=== PATIENT | male | born 1950 | race Caucasian/White ===

== ENCOUNTER 2020-11-02 14:30 | Inpatient (IN) | payer OTHER ==
[2020-11-02] VITALS (9 sets, daily range): BP systolic 82–102; BP diastolic 52–59
[~2020-11-02] VITALS: Ht 172.7 cm; Wt 64.0 kg
[2020-11-02 15:11] LABS: CALCIUM 8.3 mg/dL (8.5-10.1); CREATININE 2.2 mg/dL (0.7-1.3); HEMATOCRIT 32.6 % (42.0-52.0); HEMOGLOBIN 9.4 gm/dL (14.0-18.0); MCH 23.3 pg (26.0-34.0); MCHC 28.9 g/dL (28.0-37.0); MCV 80.7 fL (80.0-100.0); PLATELET COUNT 413 thou/uL (150-400); POTASSIUM 4.6 mmol/L (3.5-5.1); RBC 4.03 mil/uL (4.50-6.00); RDW 19.2 % (10.5-14.5)
[2020-11-02 15:14] LABS: WBC 62.7 thou/uL (4.0-11.0)
[2020-11-02 15:21] LABS: ALBUMIN 2.5 g/dL (3.4-5.0); TOTAL PROTEIN 5.7 g/dL (6.4-8.2); TROPONIN-I 0.08 ng/mL (<0.06)
[2020-11-02 15:41] LABS: URINE BILIRUBIN NEGATIVE (Negative); URINE BLOOD 3+ (Negative); URINE CLARITY CLOUDY; URINE COLOR RED; URINE GLUCOSE-RANDOM* NEGATIVE (Negative); URINE KETONES NEGATIVE (Negative); URINE LEUKOCYTES-REFLEX NEGATIVE (Negative); URINE NITRITE-REFLEX NEGATIVE (Negative); URINE PROTEIN (DIPSTICK) NEGATIVE (Negative); URINE UROBILINOGEN 0.2 E.U./dl (0.2-1.0)
[2020-11-02 15:43] LABS: BACTERIA-REFLEX None Seen /HPF (None Seen); CASTS None Seen /LPF (None Seen); CRYSTALS None Seen /LPF (None Seen); SQUAMOUS None Seen /LPF (0-3); URINE RBC >20 Many /HPF (0-2); URINE WBC-REFLEX 6-15 Few /HPF (0-5)
[2020-11-02 15:57] LABS: ABSOLUTE NEUTROPHILS 61.4 thou/uL (1.4-8.2)
[2020-11-02 16:00] LABS: HYPOCHROMASIA 3+; MICROCYTES 2+
[2020-11-02 16:35] LABS: BE(vivo) -4.7 mmol/L (-2 to +3); HCO3 27.4 mmol/L (22.0-26.0); PO2 298.6 mmHg (80.0-100.0); sO2 99.4 % (92.0-98.0)
[2020-11-02 16:36] LABS: PCO2 104.8 mmHg (35.0-45.0); pH 7.035 (7.360-7.450)
[2020-11-02 18:06] LABS: HCO3 23.6 mmol/L (22.0-26.0); PCO2 50.5 mmHg (35.0-45.0); PO2 63.9 mmHg (80.0-100.0); pH 7.288 (7.360-7.450); sO2 89.7 % (92.0-98.0)
--- NOTE | 2020-11-02 18:36 | NUR ---
OG TUBE 62 @ LIP
--- NOTE | 2020-11-02 19:32 | NUR ---
VAT RN CONSULTED FOR CVL PLACEMENT. RIGHT, 6FR IJ TL JACC PLACED STERILE FASHION, PER HOSPITAL POLICY. TRIM 25 AND 8CM EXTERNAL. PT INTUBATED AND TOLERATED WELL. CXR TO VERIFY TIP LOCATION.
--- NOTE | 2020-11-02 19:46 | NUR ---
THIS US SPOKE TO AI OF [facility] @ 194 AND REQUESTED PAPER WORK REGARDING PATIENT HISTORY AND PHYSCIAL AT FACILITY
--- NOTE | 2020-11-02 19:46 | NUR ---
RADIOLOGY REPORT IJ CVL TIP OVERLIES CAJ. RELEASED FOR USE, PER HOSPITAL PROTOCOL.
[2020-11-02 20:23] LABS: CREATININE 2.6 mg/dL (0.7-1.3); POTASSIUM 4.8 mmol/L (3.5-5.1)
[2020-11-02 20:40] LABS: APTT 30.8 Seconds (24.5-32.8); INR 1.3; PROTIME 14.5 Seconds (9.3-11.4)
[2020-11-03] VITALS (153 sets, daily range): BP systolic 68–167; BP diastolic 42–95
[2020-11-03 04:01] LABS: HCO3 13.7 mmol/L (22.0-26.0); PCO2 39.4 mmHg (35.0-45.0); PO2 143.4 mmHg (80.0-100.0); sO2 98.2 % (92.0-98.0)
[2020-11-03 04:02] LABS: pH 7.159 (7.360-7.450)
[2020-11-03 04:42] LABS: CALCIUM 6.9 mg/dL (8.5-10.1); CREATININE 2.9 mg/dL (0.7-1.3); POTASSIUM 4.5 mmol/L (3.5-5.1)
[2020-11-03 04:48] LABS: HEMOGLOBIN 7.8 gm/dL (14.0-18.0)
[2020-11-03 04:53] LABS: HEMATOCRIT 28.4 % (42.0-52.0); MCHC 27.5 g/dL (28.0-37.0); MCV 83.7 fL (80.0-100.0); RBC 3.39 mil/uL (4.50-6.00)
[2020-11-03 05:21] LABS: PLATELET COUNT 332 thou/uL (150-400)
[2020-11-03 05:22] LABS: WBC 95.2 thou/uL (4.0-11.0)
--- NOTE | 2020-11-03 06:48 | EKG ---
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 : 1950 Requested By: Aneta Dobson Order Number: [id number] MD: Arsenio Tapia Measurements Intervals [place] Rate: 118 P: 79 LA: 101 QRS: -21 QRSD: 112 T: -74 QT: 308 QTc: 432 Interpretive Statements Sinus tachycardia Atrial premature complexes RSR' in V1 or V2, probably normal variant Inferior infarct, old Lateral leads are also involved No previous ECG available for comparison Electronically Signed On 11-03-2020 6:48:21 [employer] by Arsenio Tapia [email or web address] <ELECTRONICALLY SIGNED> By: Arsenio Tapia MD, [facility] 11/03/20 0648 1446 1446 Arseino Tapia MD, FACC /EPI
[2020-11-03 09:08] LABS: CALCIUM 6.8 mg/dL (8.5-10.1)
--- NOTE | 2020-11-03 09:28 | 2DMMODE ---
[facility] [place] [address] 2 D/M-MODE ECHOCARDIOGRAM Name: MANNY ARNOLD Room #: 243-P ADM IN M.R.#: [id number] Admission: 11/02/20 Attend Phys: Jose Hoffman MD Discharge: Date of : 46 Report #: [id number] THIS REPORT FOR: cc: Maged Arceo James D. DO Lammoglia, Francisco J. MD ~ APPROVED REPORT Study performed: 11/03/2020 08:43:09 EXAM: Comprehensive 2D, Doppler, and color-flow Echocardiogram Patient Location: ICU Room #: 243 Status: routine BSA: 1.80 HR: 80 bpm BP: 151/83 mmHg Rhythm: NSR Other Information Study Quality: Good Indications COPD Murmur Covid positive 2D Dimensions RVDd: 32.50 mm IVSd: 8.85 (7-11mm) LVOT Diam: 19.66 (18-24mm) LVDd: 41.96 mm PWd: 10.35 (7-11mm) Ascending Ao: 41.12 (22-36mm) LVDs: 30.46 (25-40mm) Aortic Root: 34.14 mm IVC: 10.00 mm Volumes Left Atrial Volume (Systole) Single Plane 4CH: 50.10 mL Single Plane 2CH: 53.07 mL LA ESV Index: 32.00 mL/m2 Aortic Valve AoV Peak Joe.: 1.75 m/s AO Peak Gr.: 12.27 mmHg LVOT Max P.66 mmHg LVOT Max V: 1.47 m/s [facility] [address] [place] [address] 2 D/M-MODE ECHOCARDIOGRAM Name: MANNY ARNOLD Room #: 243-P ADM IN M.R.#: [id number] Admission: 11/02/20 Attend Phys: Jose Hoffman MD Discharge: Date of : 46 Report #: [id number] CALEB Vmax: 2.55 cm2 Mitral Valve E/A Ratio: 1.3 MV Decel. Time: 135.78 ms MV E Max Joe.: 0.78 m/s MV A Joe.: 0.58 m/s MV PHT: 39.38 ms IVRT: 73.82 ms Pulmonary Valve PV Peak Joe.: 1.02 m/s PV Peak Gr.: 4.13 mmHg Pulmonary Vein P Vein S: 0.52 m/s P Vein A: 0.27 m/s P Vein D: 0.27 m/s P Vein A Dur.: 87.7 msec P Vein S/D Ratio: 1.93 Tricuspid Valve TR Peak Joe.: 2.88 m/s TR Peak Gr.: 33.26 mmHg PA Pressure: 38.00 mmHg Left Ventricle The left ventricle is normal size. There is normal LV segmental wall motion. There is normal left ventricular wall thickness. The left ventricular systolic function is normal. The left ventricular ejection fraction is within the normal range. LVEF is 55-60%. The left ventricular diastolic function is normal. Right Ventricle The right ventricle is normal size. The right ventricular systolic function is normal. Atria The left atrium size is normal. The right atrium size is normal. Aortic Valve The aortic valve is normal in structure. The Aortic valve is sclerotic. Mild aortic regurgitation. There is no aortic valvular stenosis. Mitral Valve The mitral valve is normal in structure. Trace mitral regurgitation. No evidence of mitral valve stenosis. [facility] [address] [place] [address] 2 D/M-MODE ECHOCARDIOGRAM Name: MANNY ARNOLD Room #: 243-P ADM IN M.R.#: [id number] Admission: 11/02/20 Attend Phys: Jose Hoffman MD Discharge: Date of : 46 Report #: [id number] Tricuspid Valve The tricuspid valve is normal in structure. There is trace to mild tricuspid regurgitation. Estimated PAP 38 mmHg. There is mild pulmonary hypertension. Pulmonic Valve The pulmonary valve is normal in structure. There is no pulmonic valvular regurgitation. Great Vessels The aortic root is normal in size. IVC is normal in size and collapses >50% with inspiration. Pericardium There is no pericardial effusion. <Conclusion> The left ventricle is normal size. LVEF is 55-60%. The aortic valve is normal in structure. The Aortic valve is sclerotic. Mild aortic regurgitation. The mitral valve is normal in structure. Trace mitral regurgitation. The tricuspid valve is normal in structure. There is trace to mild tricuspid regurgitation. Estimated PAP 38 mmHg. There is mild pulmonary hypertension. The pulmonary valve is normal in structure. There is no pericardial effusion. <ELECTRONICALLY SIGNED> By: Cuba Ruth MD 11/03/20927 7 7 Cuba Ruth MD /INF
--- NOTE | 2020-11-03 09:37 | NUR ---
UPON ADMISION, PT FROM ED, PT ON LEVOPHED, EPI, VERSED GTT. STARETED VASSOPRESSIN UPON ARRIVAL TO SUPPORT BP. REPORT GIVEN PT HAD EMESSIS PRIOR TO ARRIVAL. REPLACE SMALL BORE OGT WITH LARGER BORE OGT TO LIS. CRITICAL LAB RESULT CALLED TO PROVIDERS AND ORDERS RECIVED TO ADDRESS. PT SIN TO OPEN EYES AND TRACK WHEN SEDATION LIGHTEND. SLOW PROGRESS TO REMOVE PRESSORS.
[2020-11-03 10:14] LABS: ABSOLUTE NEUTROPHILS 86.6 thou/uL (1.4-8.2); METAMYELOCYTES 5 %; MYELOCYTES 1 %
[2020-11-03 10:15] LABS: ANISOCYTOSIS 2+; HYPOCHROMASIA 1+; OVALOCYTES FEW
[2020-11-03 10:16] LABS: LARGE PLATELETS FEW
[2020-11-03 11:53] LABS: POTASSIUM 4.2 mmol/L (3.5-5.1)
[2020-11-03 11:57] LABS: % SATURATION 3 % (20-39); IRON 7 ug/dL (65-175); TIBC 227 ug/dL (250-450)
--- NOTE | 2020-11-03 12:25 | NUR ---
chart review. pt from [facility]. requiring vent. unable to visit with jossy. no contacted listed. cm sent message for liaison with [facility] to see if he is snf or LTC. will cont to following as needed for dc needs.
[2020-11-03 12:27] LABS: FOLIC ACID 6.5 ng/mL (8.6-58.9)
--- NOTE | 2020-11-03 13:00 | NUR ---
brown liquid drained out of pt's mouth. og patent with small amount green bile drainage, followed by brown drainage. titrated off epi and vaso.
--- NOTE | 2020-11-03 16:30 | NUR ---
MARGINAL URINE OUTPUT. IRRIGATED OSBORN WITH 90CC STERILE WATER. PINK URINE 90CC RETURN, NO CLOTS. LIGHT BROWN DRAINAGE PER OG TUBE.
[2020-11-03 17:20] LABS: CALCIUM 6.6 mg/dL (8.5-10.1); CREATININE 2.8 mg/dL (0.7-1.3)
[2020-11-03 21:02] LABS: ALBUMIN 1.5 g/dL (3.4-5.0); CALCIUM 6.3 mg/dL (8.5-10.1); CREATININE 3.1 mg/dL (0.7-1.3); POTASSIUM 4.1 mmol/L (3.5-5.1); TOTAL PROTEIN 4.5 g/dL (6.4-8.2)
[2020-11-03 21:10] LABS: HEMOGLOBIN 7.3 gm/dL (14.0-18.0); MCHC 30.3 g/dL (28.0-37.0)
[2020-11-03 21:10] LABS: BE(vivo) 3.4 mmol/L (-2 to +3); PCO2 36.3 mmHg (35.0-45.0); PO2 81.3 mmHg (80.0-100.0); pH 7.489 (7.360-7.450); sO2 96.8 % (92.0-98.0)
[2020-11-03 21:13] LABS: HEMATOCRIT 24.2 % (42.0-52.0); MCH 23.4 pg (26.0-34.0); MCV 77.1 fL (80.0-100.0); PLATELET COUNT 229 thou/uL (150-400); RBC 3.14 mil/uL (4.50-6.00); RDW 19.4 % (10.5-14.5)
[2020-11-03 21:15] LABS: WBC 59.2 thou/uL (4.0-11.0)
[2020-11-03 23:28] LABS: ANISOCYTOSIS 2+; HYPOCHROMASIA 1+
[2020-11-04] VITALS (68 sets, daily range): BP systolic 71–126; BP diastolic 43–84
[2020-11-04 05:15] LABS: BE(vivo) 1.8 mmol/L (-2 to +3); HCO3 25.5 mmol/L (22.0-26.0); PO2 91.5 mmHg (80.0-100.0); pH 7.468 (7.360-7.450); sO2 97.5 % (92.0-98.0)
[2020-11-04 05:56] LABS: MCH 23.3 pg (26.0-34.0)
[2020-11-04 06:02] LABS: HEMATOCRIT 23.5 % (42.0-52.0); HEMOGLOBIN 7.1 gm/dL (14.0-18.0); MCHC 30.2 g/dL (28.0-37.0); PLATELET COUNT 231 thou/uL (150-400); RBC 3.06 mil/uL (4.50-6.00); RDW 19.6 % (10.5-14.5)
[2020-11-04 06:17] LABS: ALBUMIN 1.5 g/dL (3.4-5.0); CALCIUM 6.7 mg/dL (8.5-10.1); CREATININE 3.4 mg/dL (0.7-1.3); DIRECT BILIRUBIN 0.3 mg/dL (<0.1-0.2); PHOSPHORUS 3.4 mg/dL (2.5-4.9); POTASSIUM 4.5 mmol/L (3.5-5.1); TOTAL PROTEIN 4.6 g/dL (6.4-8.2)
[2020-11-04 06:23] LABS: WBC 63.4 thou/uL (4.0-11.0)
--- NOTE | 2020-11-04 07:06 | HC ---
[facility] [place] [address] CONSULTATION Name: MANNY ARNOLD Room #: 243-P ADM IN M.R.#: [id number] Admission: 11/02/20 Attend Phys: Jose Hoffman MD Discharge: Date of : 46 Report #: [id number] THIS REPORT FOR: cc: Maged Arceo James D. DO McKittrick, Richard James MD ~ REQUESTING PHYSICIAN: Dr. Darek Murillo REASON FOR CONSULTATION: Leukocytosis. HISTORY OF PRESENT ILLNESS: The patient is a 70-year-old gentleman that we did not have much information about. From some of the outside records, it appears that he had been living independently in an apartment, had inguinal hernia surgery, I think at [facility] about 10/21. He had tested negative for COVID before that surgery. After surgery, I believe he went to rehab/nursing facility and was readmitted to [facility] about 2 days later COVID positive. It looks like about the or the , his white count was around 30,000-34,000, hemoglobin mid 10s, platelets were between 200,000 and 300,000 if I recall. We also have lab from about the , which I think is about the time he discharged from the hospital. At that time, again his white count was between 30,000 and 40,000, hemoglobin in the mid 10s by recall. Here, it seems that he developed mental status changes at the nursing facility and I believe respiratory difficulties. He was brought to the hospital. Here, he was intubated, was found to have respiratory failure and was also hypotensive, currently in the ICU on multiple pressors. Yesterday, his white count was 62,700, today it is 95,000. Hemoglobin yesterday 9.4, today 7.8; yesterday platelet count 413, today 332. MCV 83.7. Differential had 79% neutrophils, 19% bands, 2 lymphocytes. No blasts, metamyelocytes, myelocytes mentioned. Liver functions were okay. Coags were normal. Differential at outside had also showed mostly neutrophils without mention of blasts, metamyelocytes or myelocytes. The patient tested COVID positive here. PAST MEDICAL HISTORY: Not really obtainable. Per outside charts it sounds like the patient stopped smoking about 17 years ago. There was one mention about prostate cancer, but another did mention hypothyroidism, may be some COPD. We will try to review those records when they become more available. SOCIAL HISTORY: As above. Quit smoking. Lived independently in an apartment prior to this. FAMILY HISTORY: Unobtainable. MEDICATIONS: At this time in the hospital currently include vancomycin 500 ____ q. 24, heparin 5000 units b.i.d., sodium bicarbonate, midazolam, Zosyn q. 8, norepinephrine drips, levofloxacin q. 48, famotidine 10 mg b.i.d. IV, dexamethasone 10 daily. He is also on sliding scale insulin, epinephrine drip, [address] [address] CONSULTATION Name: MANNY ARNOLD Room #: 243-P ADM IN M.R.#: [id number] Admission: 11/02/20 Attend Phys: Jose Hoffman MD Discharge: Date of : 46 Report #: [id number] vasopressin drip. PHYSICAL EXAMINATION: VITAL SIGNS: Height is 5 feet 8 inches, 172.7 cm; weight 153 pounds or 69.5 kilograms. Recent blood pressure is 98/56, O2 sat 95% on a vent at 50% FiO2, pulse 95, respirations 20, afebrile here. He had earlier last measured afternoon 102.9 axillary. IMAGING: Includes chest x-ray which had some questionable infiltrates. Per Dr. Murillo, outside scans at [facility] had raised the question about a widened mediastinum. ASSESSMENT AND PLAN: 1. Leukocytosis. Given the fact that it was present at the other hospital, this may be somewhat chronic. We do not have preadmit to see if he was elevated. May be leukemoid that is quite high for that. On the other hand, we do not see any blast, increased lymphocytes, metamyelocytes or myelocytes. We will ask pathology for peripheral smear review and monitor the patient on multiple antibiotics. The patient is also on steroids which may be contributing. 2. Respiratory failure, on the ventilator with inhalation therapy. 3. Presumed sepsis with fever and multiorgan dysfunction, on multiple antibiotics. I believe Infectious Disease will be seeing the patient. 4. History of hypothyroid. Will need replacement. 5. Anemia. We will check B12, folate, iron, may be more chronic in nature. 6. Renal insufficiency with a creatinine of 2.9. We will monitor. <ELECTRONICALLY SIGNED> By: Matty Cortez MD 11/04/2006 2 Matty Cortez MD /nt
[2020-11-04 08:07] LABS: HEMATOLOGY COMMENTS Note: (()); HEMOGLOBIN 7.7 g/dL (13.0-17.7)
--- NOTE | 2020-11-04 08:32 | HC ---
[facility] [place] [address] CONSULTATION Name: CLIF ARNOLD Room #: 243-P ADM IN M.R.#: [id number] Admission: 11/02/20 Attend Phys: Jose Hoffman MD Discharge: Date of : 46 Report #: [id number] THIS REPORT FOR: cc: Maged Arceo James D. DO Barry, Joseph W. MD ~ DATE OF SERVICE: 11/03/2020 INFECTIOUS DISEASE CONSULTATION ATTENDING PHYSICIAN: Dr. Hoffman REASON FOR EVALUATION: Septic shock, gram-negative septicemia, also has COVID-19 and has multiorgan dysfunction. HISTORY OF PRESENT ILLNESS: Chart reviewed, patient examined. This is a 70-year-old gentleman, admitted and transferred from a facility. History is obtained from the chart. Apparently, he underwent bilateral inguinal hernia repair 10/21/2020 at an outside hospital, within the next 24 hours, had tested positive for COVID-19, had been recovering, on day of admission was found to have fairly abrupt onset of mental status changes, was found to be hypoxemic with saturations in the 70s. He was transferred to the Emergency Room, was found to be in renal failure with a creatinine of 2.2. Urinalysis showed 6-15 white cells. Chest x-ray, bilateral diffuse hazy interstitial lung changes. Initial CBC showed a white count of 62.7 thousand, repeat today was 95,000. Lactic acid elevated at 5.88, pH is 7.035, pCO2 of 104.8, pO2 of 298.6, on FiO2 100%, was emergently intubated. Procalcitonin was greater than 200. Troponin elevated at 1.08. Urine culture with growth of E. coli as were 2/2 blood cultures. Abdominal ultrasound showed unremarkable gallbladder. No evidence of abnormal biliary tract. ALLERGIES: None known. CURRENT MEDICATIONS: Include vancomycin, sodium bicarbonate, Zosyn, norepinephrine, epinephrine, vasopressin, levothyroxine, famotidine, dexamethasone. PAST MEDICAL HISTORY: Limited to the chart. SOCIAL HISTORY: Former smoker. FAMILY HISTORY: Noncontributory. REVIEW OF SYSTEMS: Unobtainable. [facility] [address] [place] [address] CONSULTATION Name: CLIF ARNOLD Room #: 243-P ADM IN M.R.#: [id number] Admission: 11/02/20 Attend Phys: Jose Hoffman MD Discharge: Date of : 46 Report #: [id number] PHYSICAL EXAMINATION: GENERAL: He appears chronically ill with acute toxicity. Undernourished. VITAL SIGNS: Temperature 98.8, pulse 81, respirations 24, blood pressure is 110/71 with multiple pressors. HEENT: He is intubated, has ET in place, central venous catheter on the right. LUNGS: Scattered coarse breath sounds. HEART: Regular. I do not appreciate a murmur. ABDOMEN: Generally soft. Lower abdomen is quite contused. There is a transverse oriented incision, which appears to be fairly well approximated. There is no overt drainage. I do not appreciate any induration or firmness at this point. GENITOURINARY AND RECTAL: Deferred. LABORATORY DATA: CBC from this morning, white count of 95.2, H and H 7.8 and 28.4, platelets of 332, 19% bands, loculated polys. Abdominal ultrasound as described above. Electrolytes with sodium 136, potassium 5.0, chloride 102, bicarbonate is 20, anion gap of 14, BUN and creatinine 39 and 3.0, glucose of 288. Blood cultures with growth of Escherichia coli and urine culture with E. coli as well. Lactic acid most recently from this morning is 7.7. ABGs earlier this morning with pH 7.159, pCO2 of 39.4, pO2 of 143.4, FiO2 of 65%. ASSESSMENT AND PLAN: Gram-negative septicemia, complicated by septic shock, presumably a genitourinary tract source. He does not appear to have any peritoneal signs to suggest an acute abdomen. Certainly, at postsurgical state, it raises possible questions why he is having such a profound leukemoid reaction, it is not entirely clear. Although he is COVID positive, I do not suspect that is what is driving this given historically the COVID does not cause significant shock. We will continue broad-spectrum combination therapy, pending results of susceptibilities. He is roughly 13 days out from his COVID diagnosis, probably not reasonable to start remdesivir in addition to what he is on including corticosteroids. His overall prognosis is quite poor. Continue supportive care. Noted he appears to be in premorbid compromised nutritional state. Try to optimize nutrition as allowed. <ELECTRONICALLY SIGNED> By: Clif Figueroa MD 11/04/20 0832 1031 1112 Clif Figueroa MD /nt
[2020-11-04 10:48] LABS: ABSOLUTE NEUTROPHILS 60.2 thou/uL (1.4-8.2); METAMYELOCYTES 1 %
[2020-11-04 10:51] LABS: ANISOCYTOSIS 1+; HYPOCHROMASIA SLIGHT; OVALOCYTES FEW; POIKILOCYTOSIS SLIGHT
--- NOTE | 2020-11-04 15:05 | NUR ---
AT APPROXIMATELY 1330, PT'S SON, ANTHONY, CALLED FOR UPDATE. ANTHONY UPDATED ON PT CONDITION AND QUESTIONS ANSWERED. ENCOURAGEMENT AND EMOTIONAL SUPPORT PROVIDED.
--- NOTE | 2020-11-04 18:06 | NUR ---
PT TOLERATING FIO2 WEANING AND LEVOPHED WEANING. URINE OUTPUT ADEQUATE W/ PINK TINGED URINE AND NO CLOTS OR HEAVY SEDIMENT. PT OVERALL PROGRESSING TOWARD GOALS.
[2020-11-05] VITALS (95 sets, daily range): BP systolic 86–146; BP diastolic 59–89
[2020-11-05 05:57] LABS: HCO3 24.6 mmol/L (22.0-26.0); PCO2 34.5 mmHg (35.0-45.0); PO2 137.4 mmHg (80.0-100.0); pH 7.471 (7.360-7.450); sO2 98.9 % (92.0-98.0)
[2020-11-05 06:03] LABS: HEMOGLOBIN 6.7 gm/dL (14.0-18.0); MCH 23.4 pg (26.0-34.0); MCHC 30.7 g/dL (28.0-37.0); MCV 76.4 fL (80.0-100.0)
[2020-11-05 06:09] LABS: HEMATOCRIT 21.8 % (42.0-52.0); PLATELET COUNT 195 thou/uL (150-400); RBC 2.85 mil/uL (4.50-6.00); RDW 19.4 % (10.5-14.5)
[2020-11-05 06:33] LABS: ALBUMIN 1.4 g/dL (3.4-5.0); CALCIUM 6.8 mg/dL (8.5-10.1); CREATININE 2.9 mg/dL (0.7-1.3); DIRECT BILIRUBIN 0.1 mg/dL (<0.1-0.2); PHOSPHORUS 4.5 mg/dL (2.6-4.7); POTASSIUM 4.4 mmol/L (3.5-5.1); TOTAL BILIRUBIN 0.6 mg/dL (0.2-1.0); TOTAL PROTEIN 4.6 g/dL (6.4-8.2)
[2020-11-05 06:34] LABS: WBC 42.9 thou/uL (4.0-11.0)
[2020-11-05 10:24] LABS: ABSOLUTE NEUTROPHILS 42.5 thou/uL (1.4-8.2); ANISOCYTOSIS 2+; HYPOCHROMASIA 1+; OVALOCYTES FEW
[2020-11-05 15:01] LABS: BE(vivo) -2.7 mmol/L (-2 to +3); HCO3 21.9 mmol/L (22.0-26.0); PCO2 36.9 mmHg (35.0-45.0); PO2 145.5 mmHg (80.0-100.0); pH 7.391 (7.360-7.450); sO2 98.9 % (92.0-98.0)
--- NOTE | 2020-11-05 15:15 | NUR ---
CM review of case and notes and shows patient resides at [facility] with initial plan to return upon medical clearance. Per nursing documentation patient tolerating FI01 weaning and Levophed. weaning. Plan is maintained on ventilatory support with F102 decrease to 45% and PEEP of 6. The patient has been afebrile and increased urine output. However because of diminishing hemoglobin the patient underwent transfused packed red blood cells. CM will continue to follow for discharge needs as medical plan of care continues. 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
--- NOTE | 2020-11-05 15:34 | NUR ---
PT INTUBATED AND SEDATED, PT FSC OFF OF SEDATION. VENT SETTINGS TITRATED DOWN BY RT. PT REMAINS ON QUAD STRENGTH LEVOPHED FOR BP SUPPORT. PT AFEBRILE, ADEQUATE UOP, BM X1, NEEDS NUTRITION. UNABLE TO LOCATE ANY FAMILY OR FRIENDS TO CALL AND UPDATE ON PT'S STATUS. PT HAS BEEN UPDATED AND EDUCATED ON CONDITION AND POC. 1 UNIT OF PRBC'S GIVEN PER [facility] PROTOCAL.
[2020-11-06] VITALS (87 sets, daily range): BP systolic 99–186; BP diastolic 63–106
[2020-11-06 04:55] LABS: ALBUMIN 1.5 g/dL (3.4-5.0); ANION GAP 10 mmol/L (7-16); BUN 64 mg/dL (7-18); CALCIUM 7.5 mg/dL (8.5-10.1); CHLORIDE 109 mmol/L (98-107); CO2 25 mmol/L (21-32); CREATININE 2.5 mg/dL (0.7-1.3); DIRECT BILIRUBIN < 0.1 mg/dL (<0.1-0.2); GLUCOSE 124 mg/dL (74-106); PHOSPHORUS 4.8 mg/dL (2.5-4.9); POTASSIUM 4.7 mmol/L (3.5-5.1); SGOT 19 U/L (15-37); SGPT 25 U/L (30-65); SODIUM 144 mmol/L (136-145); TOTAL BILIRUBIN 0.5 mg/dL (0.2-1.0); TOTAL PROTEIN 4.7 g/dL (6.4-8.2)
[2020-11-06 10:25] LABS: BE(vivo) -2.5 mmol/L (-2 to +3); HCO3 21.6 mmol/L (22.0-26.0); PCO2 35.4 mmHg (35.0-45.0); PO2 109.6 mmHg (80.0-100.0); pH 7.403 (7.360-7.450); sO2 98.1 % (92.0-98.0)
--- NOTE | 2020-11-06 17:34 | NUR ---
PT OFF ALL SEDATION AND ANALGESIA. PT WAKES UP TO VOICE, FOLLOWS COMMANDS, AND NODS HEAD YES/NO APPROPRIATELY. PT OCCASIONALLY RESTLESS. PT TOLERATING CPAP TODAY WITH EXPECTATION TO EXTUBATE TOMORROW. URINE OUTPUT ADEQUATE. VS STABLE THROUGHOUT THE DAY. PT PROGRESSING TOWARD GOALS.
[2020-11-07] VITALS (21 sets, daily range): BP systolic 130–180; BP diastolic 71–111
[2020-11-07 05:35] LABS: HEMATOCRIT 29.8 % (42.0-52.0); HEMOGLOBIN 9.3 gm/dL (14.0-18.0); MCH 24.6 pg (26.0-34.0); MCHC 31.1 g/dL (28.0-37.0); PLATELET COUNT 182 thou/uL (150-400); RBC 3.77 mil/uL (4.50-6.00); RDW 20.1 % (10.5-14.5)
[2020-11-07 05:39] LABS: ALBUMIN 1.8 g/dL (3.4-5.0); ANION GAP 9 mmol/L (7-16); BUN 63 mg/dL (7-18); CALCIUM 8.3 mg/dL (8.5-10.1); CHLORIDE 112 mmol/L (98-107); CO2 25 mmol/L (21-32); CREATININE 2.1 mg/dL (0.7-1.3); DIRECT BILIRUBIN < 0.1 mg/dL (<0.1-0.2); GLUCOSE 96 mg/dL (74-106); PHOSPHORUS 3.5 mg/dL (2.5-4.9); POTASSIUM 4.2 mmol/L (3.5-5.1); SGOT 19 U/L (15-37); SGPT 19 U/L (30-65); SODIUM 146 mmol/L (136-145); TOTAL BILIRUBIN 0.5 mg/dL (0.2-1.0)
[2020-11-07 05:44] LABS: WBC 27.6 thou/uL (4.0-11.0)
[2020-11-07 08:58] LABS: ABSOLUTE NEUTROPHILS 27.3 thou/uL (1.4-8.2)
[2020-11-07 08:59] LABS: ANISOCYTOSIS 1+; OVALOCYTES OCCASIONAL; POIKILOCYTOSIS SLIGHT
--- NOTE | 2020-11-07 10:44 | NUR ---
chart review. kelvin provided verbal update to [facility] liaison 11/06. noted possible will be able to be extubated today. no contacts for jossy and per [facility] " no contacts for him either"/rwbr. nutritional support. will cont following as needed for dc needs.
--- NOTE | 2020-11-07 16:01 | NUR ---
PT INTUBATED AND HAS PRN IVP PAIN CONTROL. PT FSC. CPAP TRIAL TODAY. CT OF CHEST/ABD/PELIVS TODAY. PT AFEBRILE, ADEQUATE UOP, FMS IN PLACE WITH MINIMAL OUTPUT, OGT IN PLACE TO LIS, NO NUTRITION ORDERED. PT EXTUBATED AT 1605. THERE IS NO FAMILY OR NEXT OF KIN TO CALL AND UPDATE. PT TOLERATING EXTUBATION WELL ON 5L NC. OGT REMOVED BY RN. PT HAS BEEN UPDATED AND EDUCATED ON CONDITION AND POC.
[2020-11-08] VITALS (17 sets, daily range): BP systolic 130–176; BP diastolic 67–98
--- NOTE | 2020-11-08 05:20 | NUR ---
Patient was awake most of the night. Slept intermittently after Fentanyl given. Heart rate and rhythm stable. Blood pressures stable. Oxygenation stable on 4l per NC. Adequate U/O. No am labs ordered. Patient is progressing towards goals. No family called this shift. See interventions for assessment details.
--- NOTE | 2020-11-08 10:26 | EKG ---
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1950 Requested By: Darek Murillo Order Number: [id number] MD: Andrea Smith Measurements Intervals [place] Rate: 67 P: 3 WA: 119 QRS: -16 QRSD: 81 T: 226 QT: 398 QTc: 420 Interpretive Statements Sinus rhythm Borderline short WA interval Inferior infarct, old Anteroseptal infarct, old Compared to ECG 11/02/2020 14:46:10 Sinus tachycardia no longer present Atrial premature complex(es) no longer present Myocardial infarct finding still present Electronically Signed On 11-08-2020 10:26:02 TALENT ENGINEER by Andrea Smith [email or web address] <ELECTRONICALLY SIGNED> By: Andrea Smith MD 11/08/20 1026 1342 1342 Andrea Smith MD /EPI
--- NOTE | 2020-11-08 10:28 | NUR ---
Patient helped back to bed with max assist x2.
--- NOTE | 2020-11-08 15:19 | NUR ---
1515- Report given to RUTH DWYER on 3 for continuation of care of patient after transfer. Patient is transfering from room 243 to 358. No family/friends to notify of patient transfer. Patient updated and made aware.
--- NOTE | 2020-11-08 15:20 | NUR ---
1500- Patient expressed that he feels like he has to void. Nurse noted urine output to be consistent with previous hours. Nurse performed sterile flush of catheter with 60ml, 60 ml return was obtained, clear urine noted. Saldaña care provided. Patient expressed feels better.
--- NOTE | 2020-11-08 15:50 | NUR ---
Patient transferred to [facility] via bed. Patient was placed on cardiac surgeon prior to transfer. He went with a blanket and socks. Patient expressed that was his only belongings, no further belongings found in room. He was greeted by [facility] staff at time of transfer.
--- NOTE | 2020-11-08 17:41 | NUR ---
PATIENT TRANSFER FROM ICU AT 1610. ALERT TO SELF. ON BED REST. WILL KEEP MONITOR.
[2020-11-09 03:34] VITALS: BP 118/65
--- NOTE | 2020-11-09 05:23 | NUR ---
Received an update from CLIENT APPLICATION SUPPORT SPECIALIST at shift change regarding discontinuing IVF and start clinimix per Dr. Murillo. Kept NPO until ST reeval on Tuesday. C/O generalized pain , stated he is hurting all over. Fentanyl given with good relief. Repositioned for comfort , able to turn from side to side. Cont. on enhanced precaution , afebrile. Maintaining O2 sat in the mid to upper 90's on 2L/NC, no respiratory distress. Incont. of bm x1 . Adequate urine output from philippe. Abdominal incision NEIDA. Bed alarm on. SCD's applied but he took it off before MN and refused to wear again.
[2020-11-09 07:28] LABS: ALBUMIN 1.9 g/dL (3.4-5.0); CREATININE 1.5 mg/dL (0.7-1.3); MAGNESIUM 2.2 mg/dL (1.8-2.4); TOTAL BILIRUBIN 0.8 mg/dL (0.2-1.0); TOTAL PROTEIN 4.8 g/dL (6.4-8.2)
[2020-11-09 07:36] VITALS: BP 122/62
--- NOTE | 2020-11-09 09:17 | NUR ---
PT STATES 'I NEED TO THROW UP' EMESIS BASIN PROVIDED, NO ACTIVE EMESIS. PROVIDED PT WITH COOL RAG FOR FOREHEAD AND ZOFRAN PRN.
[2020-11-09 15:53] VITALS: BP 131/68
[2020-11-09 20:16] VITALS: BP 108/52
[2020-11-10 04:57] VITALS: BP 128/63
--- NOTE | 2020-11-10 05:45 | NUR ---
Pt. slept intermittently during the night. Able to turn self from side to side with verbal cues , favors left side most of the time. Maintaining O2 sat in the mid to upper 90's on 2L/NC , no respiratory distress. Cont. on enhanced precaution , afebrile. Kept NPO , TPN infusing. Dressing changed on right flank area. Bed alarm on , took off SCD's.
[2020-11-10 06:05] LABS: HEMATOCRIT 25.6 % (42.0-52.0); HEMOGLOBIN 7.9 gm/dL (14.0-18.0); MCH 24.6 pg (26.0-34.0); MCV 79.5 fL (80.0-100.0); RBC 3.22 mil/uL (4.50-6.00); RDW 20.3 % (10.5-14.5); WBC 11.2 thou/uL (4.0-11.0)
[2020-11-10 06:13] LABS: ALBUMIN 1.9 g/dL (3.4-5.0); CREATININE 1.5 mg/dL (0.7-1.3); DIRECT BILIRUBIN 0.2 mg/dL (<0.1-0.2); MAGNESIUM 2.1 mg/dL (1.8-2.4); POTASSIUM 3.8 mmol/L (3.5-5.1); TOTAL BILIRUBIN 0.5 mg/dL (0.2-1.0); TOTAL PROTEIN 4.7 g/dL (6.4-8.2)
[2020-11-10 11:03] VITALS: BP 133/62
[2020-11-10] MEDS ORDERED: BACLOFEN 10MG T10 MG PO (11:54)
[2020-11-10] MEDS ORDERED: DECADRON6 MG PO (11:55)
[2020-11-10] MEDS ORDERED: COLACE100 MG PO ×2 (11:57→11:58)
[2020-11-10] MEDS ORDERED: FAMOTIDINE 20 M20 MG PO (11:58)
[2020-11-10] MEDS ORDERED: NEURONTIN300 MG PO (12:00)
[2020-11-10] MEDS ORDERED: FLUOCINONI0.05 %/31 TOP (12:00)
[2020-11-10] MEDS ORDERED: VANACOF DM LIQ240 ML PO (12:02)
[2020-11-10] MEDS ORDERED: IBUPROFEN 400400 M1 PO (12:03)
[2020-11-10] MEDS ORDERED: LEVO-T75 MCG PO (12:03)
[2020-11-10] MEDS ORDERED: CLARITIN10 MG PO (12:04)
[2020-11-10] MEDS ORDERED: REGLAN 5 MG TAB5 MG PO (12:05)
[2020-11-10] MEDS ORDERED: MELATONIN3 M1 PO (12:05)
[2020-11-10] MEDS ORDERED: MILK OF MA400 MG/5 M PO (12:06)
[2020-11-10] MEDS ORDERED: PROTONIX40 M2 PO (12:07)
--- NOTE | 2020-11-10 12:09 | NUR ---
Recommend tpn goal of 80ml/hr.
[2020-11-10] MEDS ORDERED: PSYLLIUM HUSK (12:11)
[2020-11-10] MEDS ORDERED: XARELTO10 M1 PO (12:12)
[2020-11-10] MEDS ORDERED: SERTRALINE HCL100 MG PO (12:13)
[2020-11-10] MEDS ORDERED: ULTRAM 50MG TAB50 MG PO (12:13)
[2020-11-10] MEDS ORDERED: TYLENOL325 M1 PO (12:14)
[2020-11-10] MEDS ORDERED: VITAMIN D210 MCG PO (12:17)
--- NOTE | 2020-11-10 13:44 | NUR ---
VICTORINA reviewed chart and spoke with nursing and attending physician. Pt was transferred to from ICU. Pt remains in Enhanced Isolation due to COVID. Pt is afebrile and on 2L of O2. Pt is on IV abx and IV steroids. Pt has been started on TPN. Recommendation made to send referral to LTAC. VICTORINA spoke with [facility] liaison, who states they are not able to provide TPN in their facility. Pt is from [facility] and has been at [facility] since having first positive COVID test on 10/20. [facility] is willing to accept pt back when off of TPN. Pt does not have family or any listed contacts. Per [facility] liaison, pt has always been his own decision maker. Pt is alert to self only at this time. VICTORINA placed call to pt's room. No answer. VICTORINA discussed case with [facility] liaison, who will review pt's info to see if pt meets LTAC criteria. Will need insurance authorization. VICTORINA is following to assist as needed with discharge planning.
[2020-11-10 14:54] VITALS: BP 106/79
--- NOTE | 2020-11-10 15:01 | NUR ---
PT MORE SLEEPY THAN YESTERDAY. VITALS WNL. ENCOURAGED PT TO SIT UPRIGHT IN BED AND COUGH/BREATHING EXERCISES. PT TOLERATED WELL.
--- NOTE | 2020-11-10 18:29 | NUR ---
LINENS CHANGED. PT REQUESTED BEDPAN FOR BM SMALL SMEAR MUCOUS OUTPUT.
[2020-11-10 20:50] VITALS: BP 140/52
[2020-11-11 04:00] VITALS: BP 117/66
--- NOTE | 2020-11-11 05:55 | NUR ---
Pt. slept fair during the night. He turns himself , at times needs assistance. Kept NPO , TPN infusing at 60 ml/hr and D5 at 40 ml/hr. Maintaining O2 sat >90% on 2L/NC. Dressing on right flank intact.Incontinent of soft unformed bm this am. Refused SCD's and boots.
[2020-11-11 06:52] LABS: ALBUMIN 1.9 g/dL (3.4-5.0); CALCIUM 7.9 mg/dL (8.5-10.1); CREATININE 1.4 mg/dL (0.7-1.3); PHOSPHORUS 2.2 mg/dL (2.5-4.9); POTASSIUM 3.8 mmol/L (3.5-5.1); TOTAL BILIRUBIN 0.6 mg/dL (0.2-1.0); TOTAL PROTEIN 4.8 g/dL (6.4-8.2)
[2020-11-11 07:04] VITALS: BP 145/67
[2020-11-11 11:07] VITALS: BP 130/59
--- NOTE | 2020-11-11 13:35 | NUR ---
VICTORINA reviewed chart and spoke with nursing and attending physician. Pt on TPN. Enhanced Isolation precautions have been discontinued. VICTORINA spoke with [facility] liaison, who states they are able to accept pt to LTAC pending insurance authorization and bed availability. VICTORINA updated attending physician, who met with pt to discuss peg tube placement. Pt agreeable with peg tube placement. GI consulted. VICTORINA updated [facility]-acute liaison. Pt is able to return to his facility ([facility]) when medically stable after peg tube placement. No need for LTAC at this time. VICTORINA updated [facility] liaison. VICTORINA faxed clinical/thearpy updates to [facility] liaison for review. VICTORINA is following to assist as needed with discharge planning.
[2020-11-11 15:44] VITALS: BP 107/60
[2020-11-11 19:48] VITALS: BP 146/78
--- NOTE | 2020-11-11 22:00 | NUR ---
COVID swab done preop (peg tube placement) and result is positive. EDUCATIONAL INTERPRETER construction services technician and pulp house supervisor notified last night. Left message for GI physician per answering service , no call back. Dr. Naomy Osorio also notified. Pt. has been off isolation since 11/10/20 and has been cleared by ID. ( 3 weeks out of being COVID positive )
--- NOTE | 2020-11-12 03:17 | NUR ---
Pt. slept fair during the night. Assisted to reposition for comfort otherwise he turns himself. Maintaining O2 sat >90% on 2L/NC. He does get short of breath with exertion. Kept NPO , TPN and D5 infusing. Incontinent of bm , complete bed bath given ( chlorhexidine bath ). Saldaña had 1150 ml out. Right flank with bordered foam dressing CDI. Bed alarm on. Refused to wear SCD's.
[2020-11-12 03:39] VITALS: BP 136/81
[2020-11-12 06:52] LABS: CALCIUM 7.9 mg/dL (8.5-10.1); CREATININE 1.3 mg/dL (0.7-1.3); MAGNESIUM 2.1 mg/dL (1.8-2.4)
[2020-11-12 08:09] LABS: HEMATOCRIT 26.6 % (42.0-52.0); HEMOGLOBIN 8.2 gm/dL (14.0-18.0); MCHC 30.8 g/dL (28.0-37.0); MCV 81.2 fL (80.0-100.0); RBC 3.28 mil/uL (4.50-6.00); RDW 19.8 % (10.5-14.5); WBC 16.7 thou/uL (4.0-11.0)
[2020-11-12 09:50] VITALS: BP 139/71
[2020-11-12 10:59] VITALS: BP 137/72
--- NOTE | 2020-11-12 11:14 | NUR ---
Note plans for PEG. When ready to start tf recommend jevity 1.5 to start 30ml/hr and progress to goal 55ml/hr Taper off tpn as TF tolerance demonstrated
--- NOTE | 2020-11-12 14:24 | NUR ---
SW reviewed chart and spoke with nursing and attending physician. Pt remains on TPN. Pt had EGD earlier today. GI was unable to place peg tube. Recommendation made for pt to have peg tube placed by IR or surgery. VICTORINA updated [facility] liaison. Plan is for pt to discharge to [facility] when medically stable. VICTORINA is following to assist as needed with discharge planning.
[2020-11-12 15:14] VITALS: BP 125/62
--- NOTE | 2020-11-12 18:29 | NUR ---
11/12/20 ASSUMED PATIENT CARE FROM [id number]. PATIENT REMAINS STRICT NPO, TPN INFUSING. EGD TODAY, UNABLE TO PLACE PEG. IR CONSULT PLACED. PATIENT HAD MULTIPLE LOOSE STOOLS, INCONTINENT. UP TO COMMODE MULTIPLE TIMES AND UP TO CHAIR BRIEFLY. REMAINS ON 1-2 LITERS OF OXYGEN. PATIENT BECOMING MORE ORIENTED BUT CONTINUES TO STATE HE IS AT [facility]. WILL CONINUE TO MONITOR.
[2020-11-12 19:06] VITALS: BP 126/73
--- NOTE | 2020-11-12 21:36 | NUR ---
PT RESTING IN BED IN THE DARK. IVF,TPN AND O2 INTACT, OSBORN TO DD. PT HAS MINIMAL VERBAL CONVERSATION, FLAT AFFECT, DISHEVELED HAIR. LUNGS WITH WHEEZES, EDEMA IN SCROTUM AND BLE REMAINS. NPO STATUS. PT FREQUENTLY CALLS TO USE BSC, PT IS NOT HAVING STOOLS. PT SOA WITH TRANSFERS AND REPOSITIONING. BED ALARM ON.
[2020-11-13 03:31] VITALS: BP 141/73
[2020-11-13 06:19] LABS: CALCIUM 7.9 mg/dL (8.5-10.1); CREATININE 1.3 mg/dL (0.7-1.3); MAGNESIUM 2.1 mg/dL (1.8-2.4); PHOSPHORUS 2.8 mg/dL (2.6-4.7); POTASSIUM 4.3 mmol/L (3.5-5.1)
[2020-11-13 07:22] VITALS: BP 132/86
[2020-11-13 09:29] LABS: APTT 23.2 Seconds (24.5-32.8); INR 1.1; PROTIME 10.6 Seconds (9.3-11.4)
--- NOTE | 2020-11-13 12:17 | NUR ---
VICTORINA reviewed chart and spoke with nursing and attending physician. Pt remains on TPN. IR is unable to place peg tube. Surgery consulted. SW provided update to [facility] liaison. Plan is for pt to discharge to [facility] when medically stable. VICTORINA is following to assist as needed with discharge planning.
--- NOTE | 2020-11-13 13:16 | P ---
[facility] [place] [address] PROCEDURE REPORT Name: MANNY ARNOLD Room #: 358-P [facility] IN M.R.#: [id number] Admission: 11/02/20 Attend Phys: Jose Hoffman MD Discharge: Date of : 46 Report #: [id number] THIS REPORT FOR: cc: Maged Arceo James D. DO McElhinney, Christian C. MD ~ DATE OF SERVICE: 11/12/2020 PROCEDURE PERFORMED: Upper endoscopy with biopsies and attempted PEG tube placement. HISTORY OF PRESENT ILLNESS: The patient is a 70-year-old male with prolonged hospitalization for COVID following a surgery on 10/21/2020. The patient is fairly confused and lethargic, although does answer some questions. He is unable to participate in feedings and not able to maintain his nutrition. He has undergone bedside swallow evaluation by speech pathology, which he has failed. He has been on TPN for nutrition support. Plan is for PEG tube. DESCRIPTION OF PROCEDURE: The procedure was performed emergently as the patient is confused and he has no other family members or durable power of immigration attorney. Sedation was given using propofol per Anesthesia. The patient is already on meropenem IV at this time. Next, using a standard Olympus upper endoscope, the scope was placed in the patient's mouth and advanced under direct vision through the esophagus, stomach, and into the second portion of the duodenum. The larynx was normal in appearance. There was severe grade D erosive esophagitis noted throughout the mid and distal esophagus. Tissue was friable. Upon entering the stomach, a hiatal hernia was noted with several ulcerations within the hiatal hernia consistent with Michael ulcers. No evidence of active bleeding. Hiatal hernia was medium sized. Overall, the gastric mucosa in the body and the antrum were normal. The pylorus was normal and patent. The duodenal bulb, first and second portion were all normal. The scope was then brought back up into the patient's stomach, and biopsies were obtained to rule out H. pylori. Next, the stomach was insufflated with air. There was an area below the xiphoid process that did transilluminate lightly. This area was marked with chlorhexidine solution and sterile drape was put in place. Xylocaine was used as a local anesthetic. I attempted 2 passes of a seeker needle through the anterior abdominal wall into the gastric lumen, neither of which were successful into the gastric lumen because of his anatomy and not being successful after the 2nd attempt, I felt it was unlikely to be successful. Therefore, no further attempts were made at this point. The scope was then withdrawn and the procedure terminated. The patient tolerated the procedure well. IMPRESSION: 1. Severe grade D erosive esophagitis. 2. Medium size hiatal hernia. [facility] [address] [place] [address] PROCEDURE REPORT Name: MANNY ARNOLD Room #: 358-P [facility] IN M.R.#: [id number] Admission: 11/02/20 Attend Phys: Jose Hoffman MD Discharge: Date of : 46 Report #: [id number] 3. Michael ulcerations. 4. Otherwise, normal upper endoscopy. Unsuccessful attempt at PEG tube placement as described above. RECOMMENDATIONS: 1. Await biopsy results. 2. Recommend b.i.d. PPI therapy. 3. We will consult Interventional Radiology for possible PEG tube placement versus possible surgically placed PEG tube in the near future. Thank you for allowing me to participate in his care. <ELECTRONICALLY SIGNED> By: Sid Turner MD 11/13/20 1316 1351 1421 Sid Turner MD /nt
--- NOTE | 2020-11-13 15:31 | NUR ---
ASSUMED CARE OF PT AT 0700 DR. CARBONE AT BEDSIDE AT 1430, HE ASKED FOR HIM TO HAVE ANOTHER SPEECH EVAL TOMORROW TO EVALUATE SWALLOW. GI AT BEDSIDE AT 1445, NO NEW ORDERS GIVEN WE ARE WAITING ON DR. LACKEY FROM SURGERY TO COME SEE THE PT FOR PEG TUBE PLACEMENT.
[2020-11-13 15:39] VITALS: BP 138/75
[2020-11-13 21:25] VITALS: BP 139/66
--- NOTE | 2020-11-14 03:25 | NUR ---
Pt. slept intermittently during the night. Assisted to reposition prn otherwise he turns himself. Also assisted up to commode to have a bm then also incontinent. O2 at 2L/NC with O2 sat greater than 90%. Kept NPO , TPN infusing. Bed alarm on.
[2020-11-14 04:03] VITALS: BP 135/81
--- NOTE | 2020-11-14 04:43 | NUR ---
Pt. calls appropriately for assistance. Able to answer orientation questions this am and aware of what's going on. Up to commode this am to have a bm. Pt. able to stand up in weighing scale this am. Making some progress towards care plan goals.
[2020-11-14 05:04] LABS: CALCIUM 8.3 mg/dL (8.5-10.1); CREATININE 1.3 mg/dL (0.7-1.3); MAGNESIUM 2.2 mg/dL (1.8-2.4); PHOSPHORUS 2.8 mg/dL (2.5-4.9); POTASSIUM 4.5 mmol/L (3.5-5.1)
[2020-11-14 05:08] LABS: HEMATOCRIT 29.6 % (42.0-52.0); HEMOGLOBIN 9.3 gm/dL (14.0-18.0); MCH 25.4 pg (26.0-34.0); MCHC 31.3 g/dL (28.0-37.0); MCV 81.3 fL (80.0-100.0); RBC 3.64 mil/uL (4.50-6.00); RDW 21.1 % (10.5-14.5); WBC 18.3 thou/uL (4.0-11.0)
[2020-11-14 07:14] VITALS: BP 141/60
--- NOTE | 2020-11-14 08:49 | NUR ---
TF recs remain the same: jevity 1.5 start 30ml/hr and progress to goal 55ml/hr.
--- NOTE | 2020-11-14 14:53 | NUR ---
VICTORINA reviewed chart and spoke with nursing. Pt remains on TPN. Pt has been started on a pureed diet with nectar thickened liquids. Surgery has been consulted for peg tube placement. ST is working with pt. If pt does not need a peg tube, pt may be ready to discharge back to [facility] over the weekend. [facility] is not able to provide TPN. community development planner faxed clinical updated to [facility] post-acute liaison for review. VICTORINA updated [facility] liaison as well. Should pt be ready for discharge over the weekend, staff to contact, Kitty, to coordinate discharge. Finalized discharge orders/summary will need to be faxed when available. Nursing to call report. Chart will need to be copied. VICTORINA is available to assist as needed with discharge planning. [facility]-- Kitty--
[2020-11-14 15:51] VITALS: BP 120/58
--- NOTE | 2020-11-14 17:29 | NUR ---
FAXED CLINICAL UPDATE TO [facility] SPOKE WITH BETHANY IN ADM SHE RECEIVED UPDATE.
--- NOTE | 2020-11-14 18:37 | NUR ---
ASSUMED PATIENT CARE AT 0700. A/0 X3. STRATED PUREED DIET AFTER ST REEVAL. TOLERATED WELL. ABLE TO FINISH 20% EACH MEAL. SOB WITH EXERTION. SLOWLY TOWARDS POC GOALS.
[2020-11-14 20:12] VITALS: BP 121/78
--- NOTE | 2020-11-15 03:34 | NUR ---
resting quietly,calls approp with needs. Continues on the TPN. denies pain. continues on the 2 liters n/c. keeping o2 sats mid 90's.
[2020-11-15 05:25] VITALS: BP 121/61
[2020-11-15 07:27] VITALS: BP 130/68
--- NOTE | 2020-11-15 08:54 | NUR ---
ECOURAGE PT TO TAKE MOR PO AND BE INVOLVED IN DAILY CARES. WILL CONTIUE TO ASSESS.
[2020-11-15 16:55] VITALS: BP 114/57
--- NOTE | 2020-11-15 17:04 | NUR ---
PT REPORTS HE IS TAKING IN BETTER PO.
[2020-11-15 19:48] VITALS: BP 102/64
--- NOTE | 2020-11-16 03:40 | NUR ---
continues on room air. resting quietly tonight. calls approp for assist. more verbal tonight. no conerns voiced. he did expeirence some pain tonight and required iv pain medication
[2020-11-16 04:23] VITALS: BP 135/81
--- NOTE | 2020-11-16 04:24 | NUR ---
PT COMPLAINS OF INDIGESTION THIS AM. ADMINISTERED HIS SUCRAFATE 3O MINUTES EARLY PER PROVIDERS RECCOMMNEDATION
[2020-11-16 08:15] VITALS: BP 103/67
[2020-11-16 14:49] VITALS: BP 94/55
--- NOTE | 2020-11-16 16:52 | NUR ---
ASSUMED PATIENT CARE AT 0700. A/0 X3. DEPRESSED. REFUSED EAT. NO DISDRESS NOTED. PATIENT PERFER WEAR 02. STILL ON TPN. SLOWLY TOWARDS POC GOALS.
[2020-11-16 20:27] VITALS: BP 99/56
[2020-11-17 04:08] VITALS: BP 122/54
--- NOTE | 2020-11-17 05:36 | NUR ---
VSS OVERNIGHT. FOLLOWING POC WITH TPN. PT HAD 2 BM'S OVERNIGHT. PT CALLED OUT FOR PAIN MEDICATION X1. PT CAN HELP ROLL HIMSELF IN BED AND CAN USE CALL LIGHT TO CALL OUT.
[2020-11-17 05:59] LABS: ALBUMIN 2.4 g/dL (3.4-5.0); CALCIUM 8.5 mg/dL (8.5-10.1); CREATININE 1.4 mg/dL (0.7-1.3); MAGNESIUM 2.2 mg/dL (1.8-2.4); POTASSIUM 4.8 mmol/L (3.5-5.1); TOTAL BILIRUBIN 0.5 mg/dL (0.2-1.0); TOTAL PROTEIN 5.7 g/dL (6.4-8.2)
[2020-11-17 07:17] VITALS: BP 125/61
--- NOTE | 2020-11-17 15:52 | NUR ---
VICTORINA reviewed chart and spoke with nursing and attending physician. Pt remains on TPN. Pt is on pureed/nectar thick diet. Pt completing calorie count to determine if peg tube is needed. VICTORINA faxed clinical/therapy updates to [facility] post acute liaison for review. Provided update. Discharge back to [facility] is anticipated in 1-2 days depending if pt needs peg tube placed per surgery. VICTORINA is following to assist as needed with discharge planning.
[2020-11-17 16:13] VITALS: BP 102/69
--- NOTE | 2020-11-17 17:25 | NUR ---
ASSUMED PATIENT CARE AT 0700. A/O X4. SLOW EATTING . ABLE TO KAVE 20-25% MEALS. SLOWLY TOWARDS POC GOA;S.
[2020-11-17 19:17] VITALS: BP 143/81
--- NOTE | 2020-11-17 23:06 | PATH ---
[facility] [address] [place] [address] PATHOLOGY RPT PROCEDURE Name: CLIF GARZA Room #: 358-P ADM IN M.R.#: [id number] Admission: 11/02/20 Date of : 46 Discharge: Report #: [id number] Path Case #: [id number] [facility] Accession Number: [id number] . 01 Material submitted: . gastrointestinal site - GASTRITIS R/O H.PYLORI . 01 Clinical history: . DYSPHAGIA . 02 Diagnosis: Stomach, "gastritis", endoscopic biopsy: - Gastric oxyntic and antral mucosa with features of reactive gastropathy (chemical gastritis). - Negative for active inflammation, intestinal metaplasia, dysplasia and malignancy. - Negative for Helicobacter pylori. . (MLK:casey; 11/14/2020) QLM 11/17/2020 [facility]5 Local . 02 Electronically signed: . Emil Brady MD, Pathologist NPI- [id number] . 01 Gross description: . The specimen is received in formalin, labeled "Clif Garza, biopsy gastritis, R/O H. pylori". Received are two segments of pale mcleod soft tissue ranging in size from 0.2 to 0.4 cm in maximum dimensions. The specimen is submitted entirely in cassette A1. (CAA; 11/13/2020) QAC/QAC 11/13/2020 1050 Local . 02 Microscopic: . Immunohistochemical stain results (properly-controlled): . Helicobacter pylori (A1): Negative for organisms . (MLK:mml; 11/14/2020) . 02 Pathologist provided ICD-10: R13.10 . 02 CPT . 375440, [id number] Specimen Comment: A courtesy copy of this report has been sent to [phone] Specimen Comment: Report sent to , / [place] [address] PATHOLOGY RPT PROCEDURE Name: CLIF GARZA Room #: 358-P ADM IN M.R.#: [id number] Admission: 11/02/20 Date of : 46 Discharge: Report #: [id number] Path Case #: [id number] Performed at: 01 [facility] [place] [address], [place], [place] [id number] MD Felton Archer MD Phone: [phone] Performed at: [address] [facility] [id number] MD Toby El MD Phone: [phone]
[2020-11-18 03:54] VITALS: BP 145/78
--- NOTE | 2020-11-18 06:02 | NUR ---
PT CONTINUES ON 1 LITER O2 FOR COMFORT. HIS O2 SAT IS 95% ON ROOM AIR. BUT HE FEELS MORE SECURE WITH IT ON. CONTINUES ON THE TPN IV INTO CENTRAL LINE. COMPLAINWED OF PAIN TONIGHT X1. GAVE THE FENTANYL. PT IS QUIET IRRITABLE TONIGHT. COMPLAINED THAT THE CLOCK WAS 3 MINUTES SLOW AND VERY ANGRY.
[2020-11-18 07:09] VITALS: BP 109/69
[2020-11-18] MEDS ORDERED: IPRAT-ALBUT 0.5-3 ML INH (09:54)
[2020-11-18] MEDS ORDERED: FLOMAX0.4 MG PO (09:54)
--- NOTE | 2020-11-18 10:10 | NUR ---
Nutrition: Day 1 calorie count pt consumed 585 kcals and 11 gm protein meeting 29% kcal needs, 12% low end protein needs. TPN plus po this day met ~100% of needs. Will continue calorie count one more day however suspect pt will need PEG tube for supplemental nutrition in light of very poor oral intake, unwilling now to eat supplements, modified diet, severe malnutrition.
--- NOTE | 2020-11-18 10:58 | NUR ---
DISCHARGE NOTE: VICTORINA reviewed chart and spoke with nursing and attending physician. Pt is medically stable for discharge to [facility] today. TPN to be discontinued. No peg tube placement planned at this time. VICTORINA faxed finalized discharge orders/summary to [facility] post-acute liaison. Wheelchair van transportation scheduled for [id number] today per facility's arrangements. VICTORINA met with pt at bedside to discuss discharge plan. Pt is aware and in agreement with discharge plan. Pt requesting his personal belongings be sent to [facility] for [facility]. SW notified [facility] liaison. Chart copy requested. Nursing to call report. No additional SW needs identified at this time, but is available to assist should needs arise. [facility]--
== END 2020-11-18 13:42 | DRG 870 ==
LOC: ER 14:30 → ICU 16:31 → 3W 16:31 → EROBS 16:31 → ICU 22:43 → 3W 11-08 15:59
PROVIDERS: Anesthesiology; Emergency Medicine; Hospitalist; Internal Medicine Hematology & Oncology; Internal Medicine Pulmonary Disease; Nurse Practitioner Family; Pediatrics; Radiology Vascular & Interventional Radiology; Specialist; ADMIT Internal Medicine; ATTEND Internal Medicine
DX: A41.9 Sepsis, unspecified organism (principal); J96.01 Acute respiratory failure with hypoxia; G92 Toxic encephalopathy; E43 Unspecified severe protein-calorie malnutrition; J96.02 Acute respiratory failure with hypercapnia; R65.21 Severe sepsis with septic shock; U07.1 COVID-19; J12.82 Pneumonia due to coronavirus disease 2019; N39.0 Urinary tract infection, site not specified; E87.0 Hyperosmolality and hypernatremia; N17.9 Acute kidney failure, unspecified; Z16.12 Extended spectrum beta lactamase (ESBL) resistance; N12 Tubulo-interstitial nephritis, not specified as acute or chronic; D64.9 Anemia, unspecified; T83.018A Breakdown (mechanical) of other urinary catheter, initial encounter; K44.9 Diaphragmatic hernia without obstruction or gangrene; J44.9 Chronic obstructive pulmonary disease, unspecified; I95.9 Hypotension, unspecified; B96.20 Unspecified Escherichia coli [E. coli] as the cause of diseases classified elsewhere; E83.39 Other disorders of phosphorus metabolism; R13.10 Dysphagia, unspecified; K21.00 Gastro-esophageal reflux disease with esophagitis, without bleeding; K25.9 Gastric ulcer, unspecified as acute or chronic, without hemorrhage or perforation; E03.9 Hypothyroidism, unspecified; Y83.8 Other surgical procedures as the cause of abnormal reaction of the patient, or of later complication, without mention of misadventure at the time of the procedure; Z68.21 Body mass index [BMI] 21.0-21.9, adult; Z85.46 Personal history of malignant neoplasm of prostate; Z87.891 Personal history of nicotine dependence; Y92.89 Other specified places as the place of occurrence of the external cause; Z86.16 Personal history of COVID-19
CPT/HCPCS: 10078; 10779; 10879; 62110; 62900; 70005; 85076

== ENCOUNTER 2020-11-20 13:49 | Inpatient (IN) | payer OTHER ==
[~2020-11-20] VITALS: Ht 177.8 cm; Wt 63.2 kg
[2020-11-20] VITALS (11 sets, daily range): BP systolic 92–118; BP diastolic 55–74
[~2020-11-20 13:49] MED LIST: BACLOFEN 10MG T10 MG PO; CLARITIN10 MG PO; COLACE100 MG PO; DECADRON6 MG PO; FAMOTIDINE 20 M20 MG PO; FLOMAX0.4 MG PO; FLUOCINONI0.05 %/31 TOP; IBUPROFEN 400400 M1 PO; IPRAT-ALBUT 0.5-3 ML INH; LEVO-T75 MCG PO; MELATONIN3 M1 PO; MILK OF MA400 MG/5 M PO; NEURONTIN300 MG PO; PROTONIX40 M2 PO; PSYLLIUM HUSK; REGLAN 5 MG TAB5 MG PO; SERTRALINE HCL100 MG PO; TYLENOL325 M1 PO; ULTRAM 50MG TAB50 MG PO; VANACOF DM LIQ240 ML PO; VITAMIN D210 MCG PO; XARELTO10 M1 PO
[2020-11-20 14:25] LABS: HEMOGLOBIN 9.2 gm/dL (14.0-18.0); PLATELET COUNT 174 thou/uL (150-400)
[2020-11-20 14:26] LABS: URINE BILIRUBIN NEGATIVE (Negative); URINE BLOOD 3+ (Negative); URINE CLARITY CLOUDY; URINE COLOR YELLOW; URINE GLUCOSE-RANDOM* NEGATIVE (Negative); URINE KETONES NEGATIVE (Negative); URINE LEUKOCYTES-REFLEX 3+ (Negative); URINE NITRITE-REFLEX NEGATIVE (Negative); URINE PROTEIN (DIPSTICK) TRACE (Negative); URINE UROBILINOGEN 0.2 E.U./dl (0.2-1.0)
[2020-11-20 14:27] LABS: HEMATOCRIT 30.4 % (42.0-52.0); MCH 26.1 pg (26.0-34.0); MCHC 30.3 g/dL (28.0-37.0); MCV 86.2 fL (80.0-100.0); RBC 3.53 mil/uL (4.50-6.00); RDW 24.2 % (10.5-14.5)
[2020-11-20 14:39] LABS: APTT 39.8 Seconds (24.5-32.8); INR 1.6; PROTIME 17.1 Seconds (9.3-11.4)
[2020-11-20 14:53] LABS: ALBUMIN 2.6 g/dL (3.4-5.0); ANION GAP 10 mmol/L (7-16); BUN 112 mg/dL (7-18); CALCIUM 8.5 mg/dL (8.5-10.1); CHLORIDE 103 mmol/L (98-107); CO2 23 mmol/L (21-32); CREATININE 6.9 mg/dL (0.7-1.3); GLUCOSE 194 mg/dL (74-106); SGOT 22 U/L (15-37); SGPT 34 U/L (30-65); SODIUM 136 mmol/L (136-145); TOTAL BILIRUBIN 1.1 mg/dL (0.2-1.0); TOTAL PROTEIN 6.9 g/dL (6.4-8.2); TROPONIN-I <0.06 ng/mL (<0.06)
[2020-11-20 15:00] LABS: BACTERIA-REFLEX >30 Many /HPF (None Seen); CASTS None Seen /LPF (None Seen); CRYSTALS None Seen /LPF (None Seen); SQUAMOUS 0-3 Few /LPF (0-3); URINE RBC >20 Many /HPF (0-2); URINE WBC-REFLEX >25 Many /HPF (0-5)
[2020-11-20 15:00] LABS: POTASSIUM 7.5 mmol/L (3.5-5.1)
[2020-11-20 15:01] LABS: WBC CLUMPS Few (None Seen)
[2020-11-20 15:15] LABS: WBC 50.5 thou/uL (4.0-11.0)
[2020-11-20 16:16] LABS: BE(vivo) -7.3 mmol/L (-2 to +3); HCO3 21.6 mmol/L (22.0-26.0); PCO2 64.5 mmHg (35.0-45.0); PO2 102.2 mmHg (80.0-100.0); pH 7.143 (7.360-7.450); sO2 95.6 % (92.0-98.0)
[2020-11-20 16:37] LABS: METAMYELOCYTES 1 %
[2020-11-20 16:38] LABS: ANISOCYTOSIS 2+; OVALOCYTES 1+
[2020-11-20 18:21] LABS: AMP/METHAMP Negative (Negative); BARBITURATES Negative (Negative); BENZODIAZEPINES Negative (Negative); COCAINE Negative (Negative); METHADONE Negative (Negative); OPIATES Negative (Negative); PCP Negative (Negative)
[2020-11-20 19:36] LABS: BE(vivo) -5.6 mmol/L (-2 to +3); HCO3 21.3 mmol/L (22.0-26.0); PCO2 49.5 mmHg (35.0-45.0); PO2 148.2 mmHg (80.0-100.0); sO2 98.6 % (92.0-98.0)
[2020-11-20 19:37] LABS: pH 7.252 (7.360-7.450)
--- NOTE | 2020-11-20 19:45 | NUR ---
PATIENT ADMITTED TO ICU AT 1642. PATIENT COMES FROM [facility]. STAFF REPORTD NO URINARY OUTPUT SINCE ADMISSION ON 11/17. PATIENT HAD ELEVATED WBC, CR, AND K. PATIENT WAS A RECENT DISCHARGE FROM [facility] ON 11/17. PATIENT DROWSY. PLACED ON BIPAP. 1L FLUID GIVEN IN ER.
--- NOTE | 2020-11-20 20:11 | NUR ---
CONSULTED TO PLACE A CENTRAL LINE FOR A PATIENT ADMITTING WITH ARF. ORDER NOTED AND CONSENT PER MEDICAL NECESSITY/DR. SEAY. A #6F TRIPLE LUMEN CENTRAL LINE WAS PLACED AFTER A BEDSIDE TIMEOUT WAS COMPLETED. THE RIGHT CATHETER TO VEIN RATIO WAS LESS THAN 5%. LINE WAS PLACED PER HOSPITAL POLICY IN THE RIGHT IJ. A STAT CHEST XRAY WAS ORDERED FOR CONFIRMATION
[2020-11-20 20:39] LABS: APTT 36.1 Seconds (24.5-32.8); INR 1.3; PROTIME 14.6 Seconds (9.3-11.4)
[2020-11-20 20:43] LABS: ALBUMIN 2.1 g/dL (3.4-5.0); CALCIUM 7.4 mg/dL (8.5-10.1); PHOSPHORUS 8.1 mg/dL (2.6-4.7)
[2020-11-20 20:50] LABS: CREATININE 5.6 mg/dL (0.7-1.3)
[2020-11-20 20:52] LABS: POTASSIUM 6.1 mmol/L (3.5-5.1)
[2020-11-21] VITALS (24 sets, daily range): BP systolic 91–126; BP diastolic 51–76
[2020-11-21] MEDS ORDERED: DEXAMETHASONE6 MG PO (01:39)
[2020-11-21 04:07] LABS: BE(vivo) -3.2 mmol/L (-2 to +3); HCO3 22.5 mmol/L (22.0-26.0); PCO2 42.9 mmHg (35.0-45.0); pH 7.337 (7.360-7.450); sO2 96.5 % (92.0-98.0)
[2020-11-21 05:14] LABS: HEMATOCRIT 23.8 % (42.0-52.0); MCH 26.5 pg (26.0-34.0); MCHC 30.5 g/dL (28.0-37.0); MCV 86.8 fL (80.0-100.0); PLATELET COUNT 148 thou/uL (150-400); RBC 2.74 mil/uL (4.50-6.00); RDW 24.3 % (10.5-14.5)
[2020-11-21 05:16] LABS: CALCIUM 7.5 mg/dL (8.5-10.1); CREATININE 5.5 mg/dL (0.7-1.3)
[2020-11-21 05:52] LABS: POTASSIUM 5.3 mmol/L (3.5-5.1)
[2020-11-21 05:59] LABS: HEMOGLOBIN 7.2 gm/dL (14.0-18.0); WBC 35.2 thou/uL (4.0-11.0)
--- NOTE | 2020-11-21 07:11 | EKG ---
[address] [email or web address] [address] ELECTROCARDIOGRAM REPORT Name: MANNY ARNOLD Room #: 237-P ADM IN M.R.#: [id number] Admission: 11/20/20 Attend Phys: Jose Hoffman MD Discharge: Date of : 46 Report #: [id number] [facility] ED Test Date: 2020-11-20 Test Time: 15:17:53 Pat Name: MANNY ARNOLD Department: Room: [facility] Gender: M Metal Filer: Antoine EDUARDO : 1950 Requested By: Daniela Bowie Order Number: [id number] MD: Arsenio Tapia Measurements Intervals [place] Rate: 92 P: 7 VA: 127 QRS: -28 QRSD: 96 T: 44 QT: 352 QTc: 436 Interpretive Statements Sinus rhythm Borderline left axis deviation Compared to ECG 11/07/2020 13:42:01 Myocardial infarct finding no longer present Electronically Signed On 11-21-2020 7:11:26 [employer] GEOLOGIST by Arsenio Tapia [email or web address] <ELECTRONICALLY SIGNED> By: Arsenio Tapia MD, [facility] 11/21/20 0711 1517 16 Arsenio Tapia MD, FACC /EPI
--- NOTE | 2020-11-21 07:16 | NUR ---
RECEIVED OT ORDERS TO EVAL AND TREAT. PER CHART REVIEW, PT. IS ON BIPAP AND IS COVID + IN ISOLATION. WILL CHECK BACK THIS PM TO SEE IF PT. IS OFF BIPAP AND ABLE TO TOLERATE THERAPY EVALUATION.
--- NOTE | 2020-11-21 08:51 | NUR ---
chart review. jossy was dc back to [facility] on 11/18/20. he has no contacts. has assist with adls and was independent prior to last hospital admit. he required use of bipap and o2 nc. will cont following as needed for dc needs. dcp back to [facility] when medically stable. cm provided verbal update to [facility] liaison.
[2020-11-21 11:14] LABS: ABSOLUTE NEUTROPHILS 34.5 thou/uL (1.4-8.2); ANISOCYTOSIS 2+; METAMYELOCYTES 2 %; POIKILOCYTOSIS SLIGHT
[2020-11-21 11:15] LABS: OVALOCYTES FEW
--- NOTE | 2020-11-21 16:41 | HC ---
[facility] [place] [address] [place] [address] CONSULTATION Name: MANNY ARNOLD Room #: 237-P ADM IN M.R.#: [id number] Admission: 11/20/20 Attend Phys: Jose Hoffman MD Discharge: Date of : 46 Report #: [id number] THIS REPORT FOR: cc: Maged Arceo James D. DO Geha, Daniel J. MD ~ DATE OF SERVICE: 11/20/2020 INFECTIOUS DISEASE CONSULTATION REASON FOR CONSULTATION: I was asked to evaluate concerning severe sepsis and respiratory failure. HISTORY OF PRESENT ILLNESS: The patient is a 70-year-old who was recently hospitalized at [facility] for severe sepsis with shock due to ESBL-producing E. coli, urinary tract infection and bacteremia. Completed 10 days of meropenem. He was discharged on 11/18/2020 only to return today with multisystem failure and sepsis. The patient was arousable, but unable to give any history. History was gleaned from the chart and reviewed with nursing staff. He has urinary retention, had a Saldaña catheter placed and was found to be in the prostatic urethra. It was then adjusted. He was discharged to halfway with plans on voiding trial at a later date. Following discharge to detention, Saldaña catheter was removed. He noticed decreased mentation and decreased urine output. He developed increased abdominal distention and was transferred to [facility] Emergency Room. He has remained oliguric. Now in respiratory failure with mixed metabolic and respiratory acidosis. Now on BiPAP. He remains encephalopathic. No reported nausea, vomiting or diarrhea. He has had good urine output. The patient was unable to give any further history. REVIEW OF SYSTEMS: A right IJ catheter in place. He has indwelling Saldaña catheter. His urine output has improved some. He has been given IV fluids. He has had intermittent cough and sputum production. There has been no dysrhythmias. No nausea, vomiting or diarrhea reported. REVIEW OF SYSTEMS: A 14-point review was otherwise negative. ALLERGIES: No known allergies. MEDICATIONS: As noted on his MAR, having been started on Zosyn. PAST MEDICAL HISTORY: Hypothyroidism, anemia, BPH, COPD, on 2 liters of oxygen, abdominal aortic aneurysm, congestive heart failure, valvular heart disease, prostate cancer, hiatal hernia, malnutrition, ____ disease, urinary retention, dysphagia, closed head injury, left radial fracture, cervical spine fracture, [facility] [address] [place] [address] CONSULTATION Name: MANNY ARNOLD Room #: 237-P [facility] IN M.R.#: [id number] Admission: 11/20/20 Attend Phys: Jose Hoffman MD Discharge: Date of : 46 Report #: [id number] atrial fibrillation, hypertension, bilateral inguinal herniorrhaphy 1 month ago, COVID positive 1 month ago, respiratory failure for 1 week on the ventilator in mid October. FAMILY HISTORY: Negative for tuberculosis. SOCIAL HISTORY: Past smoker, no significant alcohol intake. PHYSICAL EXAMINATION: VITAL SIGNS: Afebrile and hemodynamically stable. GENERAL: He is on BiPAP. Minimally responsive. Does move all extremities. No decubiti. No palpable adenopathy. HEENT: Eyes without scleral icterus. BiPAP mask was in place. NECK: Supple. LUNGS: Coarse bilaterally. There was no consolidation. HEART: Regular, without murmur. ABDOMEN: Soft, without hepatosplenomegaly. No CVA tenderness. GENITOURINARY: External genitalia with indwelling Saldaña catheter, some blood at the meatus. Scrotum was swollen, right greater than left. RECTAL: Not performed. EXTREMITIES: Without clubbing, cyanosis or edema. LABORATORY STUDIES: Reviewed, noting creatinine of 6.9. Potassium 6.1, white count 50,000 with 20% bands. Urinalysis with packed wbc's, rbc's and bacteria. Blood and urine cultures are pending. Chest x-ray, bilateral pulmonary infiltrates. CT scan of abdomen and pelvis, BPH, diverticular disease. No evidence of abscess, no evidence of ureteral obstruction. IMPRESSION: 1. A 70-year-old with severe sepsis and multisystem failure, noting acute renal failure, respiratory failure, urinary tract infection, bilateral infiltrates with pneumonia, leukemoid reaction, encephalopathy. 2. Healthcare-associated urinary tract infection and pneumonia. 3. Acute kidney injury. 4. Congestive heart failure and atrial fibrillation. RECOMMENDATION: With history of ESBL-producing E. coli, we will continue with meropenem and add Zyvox, pending further culture results. We will maintain ICU status for sepsis treatment, BiPAP and follow urine output closely. So far, the patient is maintaining reasonable blood pressure. <ELECTRONICALLY SIGNED> By: Marquis Osorio MD 11/21/20 1641 [id number] 0006 Marqusi Osorio MD /nt
--- NOTE | 2020-11-21 17:43 | NUR ---
patient progressing towards dismissal goals. patient on 5lnc during the day. patient seen by speech thearpy. made NPO again after lunch due to poor swallowing. bm today. worked with physical therapy. plans for bone scan on thursday 11/23 morning.
[2020-11-22] VITALS (17 sets, daily range): BP systolic 100–140; BP diastolic 53–82
[2020-11-22 05:38] LABS: HEMATOCRIT 23.7 % (42.0-52.0); HEMOGLOBIN 7.2 gm/dL (14.0-18.0); MCH 26.2 pg (26.0-34.0); MCHC 30.4 g/dL (28.0-37.0); MCV 86.4 fL (80.0-100.0); PLATELET COUNT 143 thou/uL (150-400); RBC 2.74 mil/uL (4.50-6.00); WBC 24.7 thou/uL (4.0-11.0)
[2020-11-22 05:46] LABS: CALCIUM 7.6 mg/dL (8.5-10.1); POTASSIUM 4.1 mmol/L (3.5-5.1)
[2020-11-22 05:47] LABS: CREATININE 3.3 mg/dL (0.7-1.3)
[2020-11-22 05:49] LABS: ALBUMIN 1.9 g/dL (3.4-5.0); CALCIUM 7.4 mg/dL (8.5-10.1); PHOSPHORUS 4.7 mg/dL (2.5-4.9)
[2020-11-22 05:50] LABS: CREATININE 3.3 mg/dL (0.7-1.3)
--- NOTE | 2020-11-22 06:07 | NUR ---
PATIENT WAS ALERT TO PLACE AND SITUATION THRU THE NIGHT. PATIENT DISORIENTED TO TIME AND OCCASIONALLY MAKES LEWD COMMENTS TO STAFF MEMBERS. PATIENT STATES "I'LL SMACK YOUR BUTT WITH IT" "IT" REFERRING TO THE [place]AUR AND "I WANT TO SNUGGLE YOU LIKE THIS PILLOW". PATIENT WAS REMINDED BY THIS RN THAT THIS IS A RESPECTFUL ENVIORNMENT AND THAT BEHAVIOR LIKE THAT WILL NOT BE TOLERATED. PATIENT STATES IN RESPONSE, "IM JUST JOKING, I JUST TALK ABOUT IT BUT WOULD NEVER DO IT." PATIENT VERBALIZES UNDERSTANDING, BUT IS FORGETFUL AND REQUIRES REPEATED EDUCATION AND REDIRECTION. PATIENT REMAINS NPO RELATED DIFFICULTY CLEARING SECRETIONS AND SWALLOWING CONCERNS. ST FOLLOWING. PATIENT HAS ADEQUATE URINE OUTPUT AND IMPROVING LABS. PATIENT PROGRESSING TOWARDS GOALS.
[2020-11-22 07:57] LABS: ABSOLUTE NEUTROPHILS 23.5 thou/uL (1.4-8.2); PLATELET ESTIMATE NORMAL
--- NOTE | 2020-11-22 15:53 | NUR ---
PATIENT TRANSFERRED TO AT 1520. CHART AND MEDS TAKEN. PATIENT HAD NO BELONGINGS WITH HIM.
--- NOTE | 2020-11-22 17:24 | NUR ---
PT TRANSFERED FROM ICU TO FLOOR AROUND 1530 IN STABLE CONDITION.PT REQUESTED FOR FRESH WATER AND FOOD FOR DINNER.PUREED DIET GIVEN ORDERED WITH WATER. PIV INFUSING PER RTLIJ ORDERED.REPOSITIONED IN BED FOR COMFORT.NO VERBAL C/O. O2 ON PER NC AT 2LNC.WILL CONTINUE TO MONITOR.
--- NOTE | 2020-11-22 19:44 | NUR ---
PT TRANSFERRED FROM ICU AROUND 1530. PT ON FULL CODE. PT ALERT XORIENTED X4. 2L/O2/NC. IV RT IJ WITH HALF NSX 100ML/HR. PT HAS A OSBORN. REPOSITION TO SELF IN BED. PT ON NORMAL SINUS RHYTHM. LOSS OF SKIN ON RT HIP, HAS A BAND AID DRESSING ON IT. HAS AN IV 20 G ON LF AC. SHIFT REPORT GIVEN TO FELISHA.
--- NOTE | 2020-11-23 02:25 | NUR ---
PT CARE ASSUMED WITH PT IN BED WATCHING TV.PT IS A/O X4.PT IS UP WITH X1 ASSIST TO BSC.PT IS ON 3L OF O2 VIA NC.PT APPEARED TO BE IN NO ACUTE DISTRESS.PT HAS A RT IJ TRIPLE LUMEN WITH 0.45NS AT 100 AND LT AC SL.PT IS ON BREATHING TREATMENT.WILL CONTINUE TO MONITOR POC
[2020-11-23 06:13] LABS: CALCIUM 8.1 mg/dL (8.5-10.1); POTASSIUM 3.9 mmol/L (3.5-5.1)
[2020-11-23 06:19] LABS: CREATININE 2.2 mg/dL (0.7-1.3)
[2020-11-23 07:11] VITALS: BP 162/95
--- NOTE | 2020-11-23 14:32 | NUR ---
PT A&OX3-4, SLEEPING MOST OF TIME, VSS, DENIES PAIN. PATIENT HAS LOW APPETITE AND HAS REFUSED BREAKFAST AND DINNER. WILL CONTINUE TO MONITOR DIET. PATIENT CONTINUES ON 2L O2, NSR ON TELE MONITOR. PATIENT CAN REPOSITION HIMSELF. OSBORN IN PLACE, NO SIGNS OF DISTRESS. WILL CONTINUE TO MONITOR.
[2020-11-23 14:37] VITALS: BP 149/93
[2020-11-23 19:26] VITALS: BP 144/81
[2020-11-23 21:05] LABS: CALCIUM 8.3 mg/dL (8.5-10.1); CREATININE 1.8 mg/dL (0.7-1.3); POTASSIUM 3.9 mmol/L (3.5-5.1)
--- NOTE | 2020-11-24 02:45 | NUR ---
ASSUEMD CARE OF PT AT SHIFT CHANGE. PT IS AOX3 AND LETS NEEDS BE KNOWN. FALL PRECAUTION IN PLACE. APHONIA NOTED. OSBORN IN PLACE AND PATIENT. IVF AND IV ABX CONTINUED. PT IS ABLE TO TURN SELF. PT DENIES PAIN OR NAUSEA. PT RAN SR ON TELE THIS SHIFT. PT WAS ABLE TO GET COMFORTABLE AND SLEEP PART OF THE SHIFT. VSS AND NO S/S OF ACUTE DISTRESS. WILL CONTINUE TO MONITOR.
[2020-11-24 05:54] LABS: HEMATOCRIT 22.8 % (42.0-52.0); HEMOGLOBIN 7.2 gm/dL (14.0-18.0); MCH 26.7 pg (26.0-34.0); MCHC 31.5 g/dL (28.0-37.0); MCV 84.9 fL (80.0-100.0); PLATELET COUNT 140 thou/uL (150-400); RBC 2.69 mil/uL (4.50-6.00); WBC 9.8 thou/uL (4.0-11.0)
[2020-11-24 08:48] VITALS: BP 135/68
[2020-11-24 09:03] LABS: ABSOLUTE NEUTROPHILS 8.5 thou/uL (1.4-8.2); ANISOCYTOSIS 2+; HYPOCHROMASIA 1+; METAMYELOCYTES 1 %; PLATELET ESTIMATE NORMAL
--- NOTE | 2020-11-24 11:08 | NUR ---
ASSUMED PT CARE AROUND 0715.PT ALERT X ORIENTED 3-4. PT ON 2L/O2/NC. IV LF AC SALINE LOCKED AND IV RT IJ TRIPPLE LUMEN WITH HALF NS/100ML/HR. 1 X PERSON ASSIST. PUREED DIET AND HONEY THICK LIQUID. LIKES PILLS CRUSHED. HAD A BM TODAY. PHYSICAL THERAPY WORKED WITH THE PT, PT WALKED 30 STEPS WITH A WALKER AND GAIT BELT. OSBORN IN PLACE. WOUND CARE DID A DRESSING ON RT FLANK WOUND, PT SAID IT IS A SKIN TEAR. FALL PRECAUTION IN PLACE, BED IN LOW POSITION, CALL LIGHT IN REACH. WILL CONTINUE TO MONITOR.
--- NOTE | 2020-11-24 11:26 | NUR ---
WOUND CONSULT; THE PATIENT HAS A WOUND TO THE RIGHT HIP/TROCHATER AREA. MEASURES APPROX. 5 X 6 X 0.1 IT IS CONSISTANT WITH A SKIN TEAR OR A PRESSURE INJURY. THE PATIENT IS NOT A GREAT HISTORIAN. MY CHOICE WOULD BE PRESSURE. IT IS OVAL, WITH A PINK WOUND BED, STAGE 2. NO S/S OF INFECTION ARE OBVIOUS OTHER THAN THE WOUND BED COLOR. RECOMMENDATIONS; 1-XEROFORM GAUZE, BORDER FOAM CHANGE M/W/F PRN. 2-Q2H TURNING. 3-ADD A LOW AIR LOSS PUMP. DISCUSSED WITH RN.
--- NOTE | 2020-11-24 14:31 | NUR ---
PT CONTINUES ON IV MEROPEMEM. PT HAD WHOLE BODY BONE SCAN DONE THIS DAY. PLAN IS FOR PT TO RETURN TO [facility] ONCE MEDICALLY STABLE. PT TO DC WITH ANURAG IN PLACE. CM UPDATED LIAISON THIS DAY. CM FOLLOWING REGARDING DC PLANNING.
[2020-11-24 16:11] VITALS: BP 136/74
[2020-11-24 19:37] VITALS: BP 125/70
--- NOTE | 2020-11-25 05:54 | NUR ---
ASSUMED CARE OF PT AT SHIFT CHANGE. PT IS AOX3-4 AND LETS NEEDS BE KNOWN. FALL PRECAUTION IN PLACE. O2 CONTINUED AT 2L VIA NC. PT DENIED PAIN, NAUSEA OR SOA. ASSESSMENT CHARTED. FLUIDS AND IV ABX CONTINUED. PT WAS ABLE TO GET COMFORTABLE AND SLEEP PART OF THE SHIFT. VSS AND NO S/S OF ACUTE DISTRESS. WILL CONTINUE TO MONITOR.
[2020-11-25 08:00] VITALS: BP 141/75
--- NOTE | 2020-11-25 11:24 | NUR ---
ASSUMED PT CARE AROUND 0700. PT ALERT X ORIENTED X3-4. 1X PERSON ASSIST AT BEDSIDE COMMODE. IV RT IJ(TRIPPLE LUMEN) AND LF AC (SALINE LOCKED). 2L/O2/NC. FALL PRECAUTION IN PLACE. ASSESMENTS DONE. PT WORKED WITH PHYSICAL THERAPY. WILL CONTINUE TO MONITOR.
--- NOTE | 2020-11-25 12:20 | NUR ---
PT HAVING MIDLINE PLACED THIS DAY. CARE TEAM ANTICIPATE PT WILL BE DISCHARGING ON IV ABX FOR ABOUT 2 MORE WEEKS. CM UPDATED POST ACUTE LIAISON WITH [facility]. PT MAY BE DC READY TOMORROW. CM TO FOLLOW INDICATED WITH DC PLANNING.
--- NOTE | 2020-11-25 13:02 | NUR ---
VAT CONSULTED BY BEDSIDE RN, INITIALLY, TO SEE IF PT CAN DISCHARGE WITH [facility], HE HAS 2 MORE WEEKS IV ABX TO RECEIVE. THIS RN PLACED LEFT UE MIDLINE, DOCUMENTED. TRIMMED 14CM WITH 0 EXTERNAL.
--- NOTE | 2020-11-25 13:53 | NUR ---
Nutrition: very poor appetite with calorie count revealing pt meeting 16-24% of needs. Refusing appropriate supplements per diet order. Severe malnutrition present with consideration of PEG tube in past. REC consider an appetite stimulant or re-address PEG tube.
--- NOTE | 2020-11-25 13:57 | NUR ---
FAXED CLINICAL UPDATES, OT,PT,ST THERAPY NOTES AND POSITIVE COVID RESULTS [facility]. WILL CONFIRM WITH BETHANY/LIAISON THAT SHE RECEIVED. [facility] P [phone]; E-FAX [phone]
[2020-11-25 16:00] VITALS: BP 143/85
[2020-11-25 19:29] VITALS: BP 125/74
--- NOTE | 2020-11-26 01:46 | NUR ---
ASSUMED CARE OF PT AT SHIFT CHANGE. PT AOX3-4 AND LETS NEEDS BE KNOWN. FALL PRECAUTION IN PLACE. PT DENIED PAIN AND NAUSEA. O2 CONTINUED VIA NC. OSBORN IN PLACE AND PATIENT. IVF AND IV ABX CONTINUED. MIDLINE PLACED FOR IV ABX UPON DC. PT RAN SR ON TELE. PT WAS ABLE TO GET COMFORTABLE AND SLEEP PART OF THE SHIFT. VSS AND NO S/S OF ACUTE DISTRES. WILL CONTINUE TO MONITOR.
--- NOTE | 2020-11-26 12:00 | NUR ---
Assumed pt care at 7am.Pt in and out of bed with assist.Assessment completed. vss.Dr Hoffman here,no new order noted.Am meds given and well tolerated.Midline patent to ivf.Pt might dc to [facility] today when bed available and order placed by Dr Hoffman.Fall bundle in place.Pt encouraged to call for needs.Will continue to monitor.
[2020-11-26] MEDS ORDERED: FLONASE 0.05%50 MCG NASAL (13:28)
[2020-11-26] MEDS ORDERED: MEROPENEM-500 MG/50 IVPB (13:28)
[2020-11-26] MEDS ORDERED: SORE THROAT SP177 M1 MUCOUS MEM (13:28)
[2020-11-26] MEDS ORDERED: COLACE 100 MG100 MG PO (13:28)
--- NOTE | 2020-11-26 14:49 | NUR ---
CARE TEAM INDICATED THAT PT IS MEDICALLY STABLE TO DC BACK TO [facility] THIS DAY. CHART COPY MADE. ORDERS FAXED. NURSE GIVEN NUMBER FOR REPORT. TRANSPORT ARRANGED FOR [phone]. NO OTHER CM INTERVENTION INDICATED. CASE CLOSED.
== END 2020-11-26 16:04 | DRG 871 ==
LOC: ER 13:49 → EROBS 16:01 → ICU 16:01 → 4W 11-22 16:21
PROVIDERS: Hospitalist; Internal Medicine Pulmonary Disease; Nurse Practitioner Family; Specialist; ADMIT Internal Medicine; ATTEND Internal Medicine
DX: A41.51 Sepsis due to Escherichia coli [E. coli] (principal); R65.21 Severe sepsis with septic shock; G92 Toxic encephalopathy; E43 Unspecified severe protein-calorie malnutrition; J96.01 Acute respiratory failure with hypoxia; U07.1 COVID-19; J96.02 Acute respiratory failure with hypercapnia; J12.82 Pneumonia due to coronavirus disease 2019; N17.9 Acute kidney failure, unspecified; I38 Endocarditis, valve unspecified; N12 Tubulo-interstitial nephritis, not specified as acute or chronic; Z16.12 Extended spectrum beta lactamase (ESBL) resistance; I13.0 Hypertensive heart and chronic kidney disease with heart failure and stage 1 through stage 4 chronic kidney disease, or unspecified chronic kidney disease; J44.0 Chronic obstructive pulmonary disease with (acute) lower respiratory infection; E87.5 Hyperkalemia; I50.9 Heart failure, unspecified; E03.9 Hypothyroidism, unspecified; I48.91 Unspecified atrial fibrillation; G89.29 Other chronic pain; R07.9 Chest pain, unspecified; N13.9 Obstructive and reflux uropathy, unspecified; N40.1 Benign prostatic hyperplasia with lower urinary tract symptoms; R33.8 Other retention of urine; N18.9 Chronic kidney disease, unspecified; R13.10 Dysphagia, unspecified; D63.8 Anemia in other chronic diseases classified elsewhere; R40.0 Somnolence; D72.823 Leukemoid reaction; N32.0 Bladder-neck obstruction; R53.81 Other malaise; E55.9 Vitamin D deficiency, unspecified; F32.9 Major depressive disorder, single episode, unspecified; R63.4 Abnormal weight loss; Z91.14 Patient's other noncompliance with medication regimen; Z85.46 Personal history of malignant neoplasm of prostate; Z87.828 Personal history of other (healed) physical injury and trauma; Z87.81 Personal history of (healed) traumatic fracture; Z86.16 Personal history of COVID-19; Z87.891 Personal history of nicotine dependence; Z68.20 Body mass index [BMI] 20.0-20.9, adult; Z99.81 Dependence on supplemental oxygen; Z79.899 Other long term (current) drug therapy
CPT/HCPCS: 10045; 10047; 10078; 27000